=== PATIENT | female | born 1980 ===

== ENCOUNTER 2017-02-26 05:05 | Emergency (ER) | payer MEDICAID ==
[2017-02-26 05:06] VITALS: BMI 34.7
--- NOTE | 2017-02-26 06:10 | C.PDOC ---
History Of Present Illness Patient presents to the ER with a complaint of back pain; states she ran out of her pain medication. Denies recent fall, trauma, dysuria or incontinence. Time Seen by Provider: 02/26/17 06:09 Chief Complaint (Nursing): Back Pain History Per: Patient History/Exam Limitations: no limitations Onset/Duration Of Symptoms: Hrs Current Symptoms Are (Timing): Still Present Quality Of Discomfort: Unable To Describe Severity: Moderate Pain Scale Rating Of: 4 Previous Symptoms: Back Pain, Chronic Pain Associated Symptoms: denies: Incontinence, New Weakness, New Numbness, Other ( Dysuria) Exacerbating Factor(s): Movement Recent travel outside of the [facility]: No Additional History Per: Patient Past Medical History Reviewed: Historical Data, Nursing Documentation, Vital Signs Vital Signs: Last Vital Signs Temp 98.5 F 02/26/17 05:14 Pulse 82 02/26/17 05:14 Resp 22 02/26/17 05:14 BP 148/88 02/26/17 05:14 Pulse Ox 98 02/26/17 06:21 - Medical History PMH: Back Problems (chronic) - [facility] Procedures INJECT/INFUSE NEC (09/19/13) REMOV INTRALUM VAG FB (04/26/15) Family History: States: No Known Family Hx - Social History Hx Tobacco Use: No Hx Alcohol Use: No (denies) Hx Substance Use: No - Immunization History Hx Tetanus Toxoid Vaccination: No Hx Influenza Vaccination: No Hx Pneumococcal Vaccination: No Review Of Systems Genitourinary: Negative for: Dysuria, Incontinence Musculoskeletal: Positive for: Back Pain Skin: Negative for: Rash Neurological: Negative for: Weakness, Numbness Psych: Positive for: Anxiety Physical Exam - Physical Exam Appears: Non-toxic Skin: Warm, Dry Oral Mucosa: Moist Chest: Symmetrical, No Tenderness Cardiovascular: Rhythm Regular, No Murmur Respiratory: No Rales, No Rhonchi, No Wheezing Gastrointestinal/Abdominal: Soft, No Tenderness Back: Paraspinal Tenderness (Lumbar) Extremity: No Pedal Edema Extremity: Bilateral: Atraumatic Neurological/Psych: Oriented x3, Normal Speech, Normal Cognition Gait: Steady ED Course And Treatment O2 Sat by Pulse Oximetry: 98 (Room air) Pulse Ox Interpretation: Normal Progress Note: Dilaudid administered. [place], patient was given meds for 15 days on 5/4/17. Reevaluation Time: 06:30 Reassessment Condition: Improved Disposition Counseled Patient/Family Regarding: Studies Performed, Diagnosis, Need For Followup - Disposition Referrals: Ike Wallace MD [Medical Doctor] - Disposition: HOME/ ROUTINE Disposition Time: 06:10 Condition: FAIR Instructions: Chronic Back Pain (ED) - Clinical Impression Clinical Impression: Chronic back pain - Scribe Statement The provider has reviewed the documentation as recorded by the Scribsantana Ivey All medical record entries made by the Gregibsantana were at my direction and personally dictated by me. I have reviewed the chart and agree that the record accurately reflects my personal performance of the history, physical exam, medical decision making, and the department course for this patient. I have also personally directed, reviewed, and agree with the discharge instructions and disposition.
[2017-02-26 07:15] VITALS: BP 148/101; PULSE 78; RESP 18; TEMP 98.3; O2SAT 99
== END 2017-02-26 07:16 | disposition home or self-care (01) ==
LOC: C.ER 05:05
DX: G89.29 Other chronic pain (principal); M54.5 Low back pain
CPT/HCPCS: 96372; 99284; J1170

== ENCOUNTER 2018-09-10 02:23 | Emergency (ER) | payer MEDICAID ==
[2018-09-10 02:23] VITALS: BMI 34.7
[2018-09-10] MEDS ORDERED: Emtricitabine-Tenofovir 200 mg-300 mg Tab PO NR (03:30)
[2018-09-10] MEDS ORDERED: Emtricitabine-Tenofovir 200 mg-300 mg Tab PO ONE (03:30)
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
[2018-09-10 04:21] VITALS: BP 124/76; PULSE 84; RESP 16; TEMP 98.1; O2SAT 100
== END 2018-09-10 04:26 | disposition home or self-care (01) ==
LOC: C.ER 02:23
DX: T76.21XA Adult sexual abuse, suspected, initial encounter (principal)

== ENCOUNTER 2018-09-11 02:03 | Emergency (ER) | payer MEDICAID ==
[2018-09-11 02:03] VITALS: BMI 34.7
[2018-09-11 02:23] VITALS: RESP 20; TEMP 98.2; O2SAT 98
[2018-09-11] MEDS ORDERED: Emtricitabine-Tenofovir 200 mg-300 mg Tab PO STA (02:31)
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
[2018-09-11 02:56] VITALS: BP 129/63; PULSE 85
== END 2018-09-11 02:55 | disposition home or self-care (01) ==
LOC: C.ER 02:03
DX: Z76.0 Encounter for issue of repeat prescription (principal)